=== PATIENT | female | born 1975 | race Caucasian/White ===

== ENCOUNTER 2016-07-13 23:13 | Emergency (ER) | payer SELFPAY ==
[~2016-07-13 23:13] MED LIST: AMOX/K CLAV875 M1 PO; AMOXICILLIN500 MG PO; BACTRIM DS1 TAB PO; CORTISPORIN11 OT; K-DUR/KLOR-CON10 MEQ PO; ULTRAM50 M1 PO
== END 2016-07-13 23:45 | disposition expired | DRG 296 ==
LOC: ED 23:13
DX: I46.9 Cardiac arrest, cause unspecified (principal); S02.91XB Unspecified fracture of skull, initial encounter for open fracture; S82.891B Other fracture of right lower leg, initial encounter for open fracture type I or II; S42.401B Unspecified fracture of lower end of right humerus, initial encounter for open fracture; I10 Essential (primary) hypertension; S80.212A Abrasion, left knee, initial encounter; S80.211A Abrasion, right knee, initial encounter; S30.1XXA Contusion of abdominal wall, initial encounter; S30.0XXA Contusion of lower back and pelvis, initial encounter; Y33.XXXA Other specified events, undetermined intent, initial encounter; Y93.01 Activity, walking, marching and hiking; Y92.414 Local residential or business street as the place of occurrence of the external cause